=== PATIENT | male | born 1995 | race Hispanic/Latino ===

== ENCOUNTER 2018-04-18 04:17 | Inpatient (IN) | payer OTHER ==
--- NOTE | 2018-04-18 04:28 | ED PDOC ---
Psych Transfer Clearance - Clearance Statement Clearance Statement: Reviewed vital signs, lab results and transfer papers. Patient clinically stable for psychiatric admission.
[2018-04-18 04:35] VITALS: O2SAT 100
[2018-04-18] MEDS ORDERED: Magnesium Hydroxide Susp 30 ml UD PO PRN (05:07)
[2018-04-18] MEDS ORDERED: DiphenhydrAMINE 50 mg/ml Inj IM PRN (05:07)
[2018-04-18] MEDS ORDERED: Alum-Mag Hydrox-Simethicone Susp (30 mL) PO PRN (05:07)
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
[2018-04-18] MEDS ORDERED: Influenza Vaccine 60 mcg/0.5 mL SYR (4YR UP) IM ONE (05:50)
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
[2018-04-18] MEDS ORDERED: Influenza Vaccine (5 YR UP)/PF 60 MCG/0.5 ML SYR IM ONE (15:54)
[2018-04-19 06:34] LABS: T4 7.53 ug/dl (5.5-11.0)
--- NOTE | 2018-04-19 14:56 | PCM.PYCHPN ---
Psychiatric Progress Note - Psychiatric Progress Note Patient seen today, length of contact: pt evaluated discussed with team chart reviewed Patient Chief Complaint: I slept a little better Problems Identified/Issues Discussed: pt evaluated with treatment team, presenting with depressed mod and affect, related that to his current living situation and poor social support , reported improved sleep with prazosin, discussed increasing dose of remeron, no reported side effects, pt denied current thoughts of self harm denied ommand hallucinations Medical Problems: multiple hospitalizations, hx of non compliance DSM 5 Symptoms Update: major depression ptsd cannabis abuse Medication Change: Yes (increase remeron) Medical Record Reviewed: Yes Mental Status Examination - Cognitive Function Orientation: Person, Place, Situation Attention: WNL Concentration: WNL Association: WNL Fund of Knowledge: WNL - Mood Mood: Depressed, Anxious - Affect Affect: Constricted, Depressed - Formal Thought Process Formal Thought Process: No Impairment Psychotic Thoughts and Behaviors: non elicited - Suicidal Ideation Suicidal Ideation: No - Homicidal Ideation Homicidal Ideation: No Goal/Treatment Plan - Goal/Treatment Plan Need for Continued Stay: Severe depression anxiety, Discharge may exacerbated symptoms Progress Toward Problem(s) and Goals/Treatment Plan: INCREASE REMERON 15MG QHS START PRAZOSIN 1MG QHS cbt GROUP AND SUPPORTIVE THERAPY
[2018-04-19 16:13] LABS: RAPID PLASMA REAGIN REACTIVE (NONREACTIVE)
--- NOTE | 2018-04-20 11:18 | PCM.PYCHPN ---
Psychiatric Progress Note - Psychiatric Progress Note Patient seen today, length of contact: pt evaluated discussed with team chart reviewed Patient Chief Complaint: I had hard time sleeping Problems Identified/Issues Discussed: pt evaluated , reported early insomnia, discussed starting trazodone, no reported side effects, denied any current thoughts of self harm, denied perceptual disturbances Medical Problems: multiple hospitalizations, hx of non compliance DSM 5 Symptoms Update: PTSD DEPRESSION CANNABIS ABUSE Medication Change: Yes (start trazodone ) Medical Record Reviewed: Yes Mental Status Examination - Cognitive Function Orientation: Person, Place, Situation Attention: WNL Concentration: WNL Association: WNL Fund of Knowledge: WNL - Mood Mood: Depressed, Anxious - Affect Affect: Constricted, Depressed - Formal Thought Process Formal Thought Process: No Impairment Psychotic Thoughts and Behaviors: non elicited - Suicidal Ideation Suicidal Ideation: No - Homicidal Ideation Homicidal Ideation: No Goal/Treatment Plan - Goal/Treatment Plan Need for Continued Stay: Severe depression anxiety, Discharge may exacerbated symptoms Progress Toward Problem(s) and Goals/Treatment Plan: REMERON 15MG QHS PRAZOSIN 1MG QHS TRAZODONE 100MG QHS cbt GROUP AND SUPPORTIVE THERAPY
--- NOTE | 2018-04-21 13:33 | PCM.PYCHPN ---
Psychiatric Progress Note - Psychiatric Progress Note Patient seen today, length of contact: pt evaluated discussed with team chart reviewed Patient Chief Complaint: I feel better Problems Identified/Issues Discussed: pt evaluated , presenting with brighter mood and affect, , reported improved sleep no reported side effects, denied any current thoughts of self harm, denied perceptual disturbances Medical Problems: multiple hospitalizations, hx of non compliance DSM 5 Symptoms Update: depression PTSD Medication Change: No Medical Record Reviewed: Yes Mental Status Examination - Cognitive Function Orientation: Person, Place, Situation Attention: WNL Concentration: WNL Association: WNL Fund of Knowledge: WNL - Mood Mood: Depressed, Anxious - Affect Affect: Constricted, Depressed - Formal Thought Process Formal Thought Process: No Impairment Psychotic Thoughts and Behaviors: non elicited - Suicidal Ideation Suicidal Ideation: No - Homicidal Ideation Homicidal Ideation: No Goal/Treatment Plan - Goal/Treatment Plan Need for Continued Stay: Severe depression anxiety, Discharge may exacerbated sy mptoms Progress Toward Problem(s) and Goals/Treatment Plan: REMERON 15MG QHS PRAZOSIN 1MG QHS TRAZODONE 100MG QHS cbt GROUP AND SUPPORTIVE THERAPY
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
[2018-04-22] MEDS ORDERED: Alum-Mag Hydrox-Simethicone Susp (30 mL) PO PRN (12:54)
[2018-04-22] MEDS ORDERED: DiphenhydrAMINE 50 mg/ml Inj IM PRN (12:54)
[2018-04-22] MEDS ORDERED: Magnesium Hydroxide Susp 30 ml UD PO PRN (12:54)
--- NOTE | 2018-04-22 13:44 | PCM.PYCHPN ---
Psychiatric Progress Note - Psychiatric Progress Note Patient seen today, length of contact: Pt evaluated, case discussed w/ team, chart reviewed Patient Chief Complaint: Depression Problems Identified/Issues Discussed: Pt reports feeling depressed and anxious. No AH/VH/SI/HI. +FTA-ABS; ID consult ordered; patient does not have any history of treatment for syphilis Medication Change: No Medical Record Reviewed: Yes Consults ordered or reviewed: Medicine consult; ID consult Mental Status Examination - Cognitive Function Orientation: Person, Place, Situation, Time Memory: Intact Attention: WNL Concentration: WNL Association: WNL Fund of Knowledge: [facility] Decription of patient's judgement and insights: Improving I/J - Mood Mood: Depressed, Anxious - Affect Affect: Constricted, Depressed - Formal Thought Process Formal Thought Process: No Impairment Psychotic Thoughts and Behaviors: No AH/VH/paranoia/delusions - Suicidal Ideation Suicidal Ideation: No - Homicidal Ideation Homicidal Ideation: No Goal/Treatment Plan - Goal/Treatment Plan Need for Continued Stay: Severe depression anxiety, Discharge may exacerbated symptoms Progress Toward Problem(s) and Goals/Treatment Plan: Major Depressive Disorder; PTSD -Continue Remeron, Trazodone and Prazosin -Individual and group therapy -ID consult -Medicine consult -Psychoeducation -Nicotine patch -Disposition planning
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
[2018-04-22] MEDS ORDERED: Penicillin G Benzathine 2.4 Mill Unit/4 ml Syr IM SCH (19:00)
--- NOTE | 2018-04-22 19:02 | PCM.PYCHPN ---
Psychiatric Progress Note - Psychiatric Progress Note Patient seen today, length of contact: Pt evaluated, case discussed w/ team, chart reviewed Patient Chief Complaint: came to hospital changes in mood had to come visit foster parents, visit reportedly fair-not necessarily went as planned-plans when stable to [facility] where his 6 siblings live (pt is middle child), pt reports positive rapport with biological siblings believes that he would be able to live with one of them. pt was seen by dr mancia 2nd positive rpr and fta-pt to be started on im pcn with 1st injection today. pt reports current rx working helping him to relax and sleep better. denies side effects. staff report pt participating milieu and groups. rx adherent. reviewed with pt positive rpr/fta-related to possible exposure-pt reports has had only one female partner-pt is verbally agreeable to have panel as ordered by dr mancia. pt denies symptoms of sores, wounds, discharge. ' Problems Identified/Issues Discussed: alteration in mood alteration in coping alteration in domicile-pt admittedly homeless Medical Problems: positive rpr/fta-seen by dr gavino murphy other per chart Diagnostic Results: per chart per medicine per psychiatry per nursing per social worker masters per recreational therapy Medication Change: No Medical Record Reviewed: Yes Consults ordered or reviewed: pt seen by infectious disease dr mancia this evening Mental Status Examination - Cognitive Function Orientation: Person, Place, Situation, Time Memory: Intact Attention: WNL Concentration: WNL Association: WNL Fund of Knowledge: [facility] Decription of patient's judgement and insights: impaired - Mood Mood: Depressed, Anxious - Affect Affect: Constricted, Depressed - Speech Speech: Soft - Formal Thought Process Formal Thought Process: No Impairment - Suicidal Ideation Suicidal Ideation: No - Homicidal Ideation Homicidal Ideation: No Goal/Treatment Plan - Goal/Treatment Plan Need for Continued Stay: Severe depression anxiety, Discharge may exacerbated symptoms Progress Toward Problem(s) and Goals/Treatment Plan: inpt milieu vital signs clinical observation per clinical status and per protocol pt seen by dr mancia/infectious disease katherine 2nd to positive rpr/fta-pt to be started on pcn g im protocol and will have sti workup per dr mancia discharge planning progress pt is homeless will initial stay in [facility] and later will f/u in [facility] review safer sex/consistant barrier method sexual precautions pt to consider possible PreP upon discharge Estimated Date of D/C: 04/23/18 - Smoking Cessation Smoking Cessation Initiated: Yes
[2018-04-23 12:27] LABS: HEPATITIS B SURFACE AG Negative (NEGATIVE)
[2018-04-23 12:33] LABS: HEPATITIS A IGM NEGATIVE (NEGATIVE); HEPATITIS B CORE AB NEGATIVE (NEGATIVE)
[2018-04-23 14:04] LABS: HEPATITIS C ANTIBODY REACTIVE (NEGATIVE)
[2018-04-23 17:29] VITALS: RESP 18
--- NOTE | 2018-04-23 18:06 | PCM.PYCHPN ---
Psychiatric Progress Note - Psychiatric Progress Note Patient seen today, length of contact: Pt evaluated, case discussed w/ team, chart reviewed Patient Chief Complaint: feels as though gotten better, feeling closed in, reported slept last night, denies side effects rx Problems Identified/Issues Discussed: alteration in mood alteration in coping alteration in domicile-pt admittedly homeless Medical Problems: positive rpr/fta-seen by dr gavino murphy other per chart Diagnostic Results: per chart per medicine per psychiatry per nursing per forest worker per recreational therapy DSM 5 Symptoms Update: reports less depressed Medication Change: No Medical Record Reviewed: Yes Consults ordered or reviewed: seen by hospitalist Mental Status Examination - Cognitive Function Orientation: Person, Place, Situation, Time Memory: Intact Attention: WNL Concentration: WNL Association: WNL Fund of Knowledge: [facility]N Decription of patient's judgement and insights: impaired - Mood Mood: Depressed, Anxious - Affect Affect: Constricted, Depressed - Speech Speech: Soft - Formal Thought Process Formal Thought Process: No Impairment - Suicidal Ideation Suicidal Ideation: No - Homicidal Ideation Homicidal Ideation: No Goal/Treatment Plan - Goal/Treatment Plan Need for Continued Stay: Severe depression anxiety, Discharge may exacerbated symptoms, Other Progress Toward Problem(s) and Goals/Treatment Plan: inpt milieu vital signs clinical observation per clinical status and per protocol pt being followed by dr mancia +rpr/fta, positive hannah c antibody discharge planning progress pt is homeless will initial stay in [facility] and later will f/u in [facility] review safer sex/consistant barrier method sexual precautions pt to consider possible PreP upon discharge Estimated Date of D/C: 04/23/18
[2018-04-24 09:53] VITALS: BP 143/73; PULSE 66; TEMP 98
--- NOTE | 2018-04-24 16:49 | PCM.PYCHPN ---
Psychiatric Progress Note - Psychiatric Progress Note Patient seen today, length of contact: DISCHARGE NOTE DONE ON PROGRESS NOTE Patient Chief Complaint: pt reports is doing better, no longer feeling closed it, less anxious lsleep improved, appetite is good, denies side effects of medications. staff report pt is adherent with medciation and is seen in the unit interacting with select peers. admits wants to follow up in [facility], has obtained access to bus with direct route to [facility], is aware of a clinic/hospital that is approx. 4 blocks from his home. reviewed with importance of follow up related 2nd and 3rd penicillin injections. review with pt. +hep c ab pt admits that he has seen high reach operator related to past history of false positive hepC test. review that if not followed up could affect liver related possible cirrhosis, review follow if truly positive further testing ascertain if active infection possible treatment. pt has submitted 48 hour notice at this time pt does not appear to meet screening criteria will discharge patient today. f Problems Identified/Issues Discussed: alteration in mood improving alteration in coping admits will follow up in [place], has identified place for follow up alteration in domicile-pt admittedly homeless-admits has been contact with family will stay with grandmother Medical Problems: positive rpr/fta-seen by dr gavino murphy +hep c ab (?hx of false positive in past) Diagnostic Results: per chart (labs) per medicine per psychiatry per nursing per social services per recreational therapy DSM 5 Symptoms Update: improving mood, admitted improvement in desire to follow up with treatment upon discharge Medication Change: No Medical Record Reviewed: Yes Consults ordered or reviewed: pt seen by dr mancia Mental Status Examination - Cognitive Function Orientation: Person, Place, Situation, Time Memory: Intact Attention: WNL Concentration: WNL Association: WNL Fund of Knowledge: [facility] Decription of patient's judgement and insights: impaired improving - Mood Additional comments: improving anxiety and depression - Affect Affect: Constricted, Depressed - Speech Speech: Soft - Formal Thought Process Formal Thought Process: No Impairment - Suicidal Ideation Suicidal Ideation: No - Homicidal Ideation Homicidal Ideation: No Goal/Treatment Plan - Goal/Treatment Plan Need for Continued Stay: Severe depression anxiety, Discharge may exacerbated symptoms, Other Progress Toward Problem(s) and Goals/Treatment Plan: pt to be discharge per attending pt to follow up with treatment pt to follow in [place] pt to call 911 or present to nearest er reinforce need and possible outcome if no follow up relate to +fta-ab/rpr-possible 2nd and 3rd stages, if no follow up hepC if infact possible (liver cirrhosis( do not abruptly stop rx unless directed to do so pt to be given copy of labs as well as verification of date of date of first PenicillinG Estimated Date of D/C: 04/24/18 - Smoking Cessation Smoking Cessation Initiated: No
== END 2018-04-24 19:23 | disposition home or self-care (01) | DRG 754 ==
LOC: H.ER 04:17 → H.ERHOLD 04:53 → H.PSYCH 05:15
PROVIDERS: ADMIT Psychiatry & Neurology Psychiatry; ATTEND Psychiatry & Neurology Psychiatry
PROC: GZ51ZZZ Individual Psychotherapy, Behavioral (ICD-10-PCS; 2018-04-18)
PROC: GZ56ZZZ Individual Psychotherapy, Supportive (ICD-10-PCS; 2018-04-18)
PROC: GZHZZZZ Group Psychotherapy (ICD-10-PCS; principal; 2018-04-21)
DX: F32.9 Major depressive disorder, single episode, unspecified (principal); R45.851 Suicidal ideations; A53.0 Latent syphilis, unspecified as early or late; Z91.19 Patient's noncompliance with other medical treatment and regimen; J44.9 Chronic obstructive pulmonary disease, unspecified; F43.10 Post-traumatic stress disorder, unspecified; Z59.0 Homelessness; F17.210 Nicotine dependence, cigarettes, uncomplicated; Z91.5 Personal history of self-harm; A53.9 Syphilis, unspecified; F41.9 Anxiety disorder, unspecified; L65.9 Nonscarring hair loss, unspecified; F12.10 Cannabis abuse, uncomplicated